=== PATIENT | female | born 1995 | race African-American/Black ===

== ENCOUNTER 2020-09-07 09:36 | Emergency (ER) | payer BC ==
[2020-09-07] MEDS ORDERED: Dexamethasone 4 mg/ml Vial ONE (10:49)
[2020-09-07] MEDS ORDERED: Acetaminophen 500 MG TAB ONE (10:49)
[2020-09-07] MEDS ORDERED: Ketorolac Tromethamine 30 MG/ML VIAL ONE (10:49)
== END 2020-09-07 11:10 | disposition home or self-care (01) ==
LOC: NAV ERS 09:36
DX: R07.81 Pleurodynia (principal)
CPT/HCPCS: 71046; 93005; 96372; J1100; J1885